=== PATIENT | female | born 1980 | race Caucasian/White ===

== ENCOUNTER 2023-10-19 09:32 | Day surgery (SDC) | payer BC ==
[~2023-10-19] VITALS: Ht 162.6 cm; Wt 73.4 kg
[2023-10-19] VITALS (9 sets, daily range): BP systolic 62–123; BP diastolic 60–76; PULSE 55–64; TEMP 98.2–98.6
[~2023-10-19 09:32] MED LIST: LR 1,000 ML IV SCH
[2023-10-19] MEDS ORDERED: LEXAPRO 5MG5 MG PO (11:14)
[2023-10-19] MEDS ORDERED: CALCIUM 600MG+D1 TAB PO (11:15)
[2023-10-19] MEDS ORDERED: MAGNESIUM200 MG PO (11:15)
[2023-10-19] MEDS ORDERED: PERCOCET 325 MG1 TA2 PO (11:16)
[2023-10-19] MEDS ORDERED: HUMALOG100 U/ML SQ (11:16)
[2023-10-19] MEDS ORDERED: Lidocaine 2% (20 MG/ML) 20 ML UROJET UR ONE (12:00)
[2023-10-19] MEDS ORDERED: Topical Skin Adhesive 1 EACH (1 ML) TOP ONE (12:00)
[2023-10-19] MEDS ORDERED: Scopolamine 1 MG Delivered 3-Day PATCH TD SCH ×2 (12:00→12:15)
[2023-10-19] MEDS ORDERED: dexAMETHasone 10 MG/ML VIAL ONE (12:03)
[2023-10-19] MEDS ORDERED: Rocuronium 50 MG/5 ML Multi-Dose VIAL ONE (12:03)
[2023-10-19] MEDS ORDERED: NS 10 ML IV ONE (12:03)
[2023-10-19] MEDS ORDERED: Ondansetron 4 MG/2 ML VIAL ONE (12:03)
[2023-10-19] MEDS ORDERED: Ketorolac 30 MG/ML VIAL ONE (12:03)
[2023-10-19] MEDS ORDERED: fentaNYL 50 MCG/ML 5 ML VIAL ONE ×2 (12:04)
[2023-10-19] MEDS ORDERED: Glycopyrrolate 0.2 MG/ML 1 ML VIAL ONE (12:43)
[2023-10-19] MEDS ORDERED: fentaNYL 50 MCG/ML 1 ML SYRINGE/VIAL [PACU/SDC ONLY] IV PRN (13:15)
[2023-10-19] MEDS ORDERED: HYDROmorphone 1 MG/1 ML SYRINGE [PACU/SDC ONLY] IV PRN (13:15)
[2023-10-19] MEDS ORDERED: Tranexamic Acid 1,000 MG/10 ML VIAL ONE (13:44)
[2023-10-19] MEDS ORDERED: fentaNYL 50 MCG/ML 2 ML VIAL ONE (13:51)
[2023-10-19] MEDS ORDERED: LR 1,000 ML IV ONE (13:58)
[2023-10-19] MEDS ORDERED: Acetaminophen 500 MG TAB PO PRN (14:30)
[2023-10-19] MEDS ORDERED: LR 1,000 ML IV SCH (14:30)
[2023-10-19] MEDS ORDERED: oxyCODONE 5 MG TAB PO PRN (14:30)
[2023-10-19] MEDS ORDERED: Ondansetron 4 MG/2 ML VIAL IV PRN (14:30)
[2023-10-19] MEDS ORDERED: Naloxone 0.4 MG/ML VIAL IV PRN (14:30)
--- NOTE | 2023-10-19 17:22 | NUR ---
THIS RN CALLS RT TO INFORM THEM OF POSTOP PT STATUS ON UNIT AND NEED FOR INCENTIVE SPIROMETER.
[2023-10-19] MEDS ORDERED: Ibuprofen 800 MG TAB PO SCH (20:21)
[2023-10-19] MEDS ORDERED: Docusate Sodium 100 MG CAP PO SCH (21:00)
[2023-10-20 02:05] VITALS: BP 118/66; PULSE 58; TEMP 98.4
[2023-10-20 07:10] VITALS: BP 130/59; PULSE 56; TEMP 98
--- NOTE | 2023-10-20 09:45 | NUR ---
Initial visit: Patient thanked Joint Sealer for looking in on her and found that she is doing well and will be discharged soon. Patient had a family member with her and both were happy that Krys had a good experience at [facility].
== END 2023-10-20 09:00 | disposition home or self-care (01) ==
LOC: SDCO 09:32 → OB 15:15 → SDCO 10-20 09:00
DX: R10.2 Pelvic and perineal pain (principal); N83.8 Other noninflammatory disorders of ovary, fallopian tube and broad ligament; N83.12 Corpus luteum cyst of left ovary; N70.11 Chronic salpingitis; N80.30 Endometriosis of pelvic peritoneum, unspecified; N73.6 Female pelvic peritoneal adhesions (postinfective); E10.9 Type 1 diabetes mellitus without complications; Z79.4 Long term (current) use of insulin; Z96.41 Presence of insulin pump (external) (internal)
CPT/HCPCS: OP; A9284; J0690; J1100; J1885; J2405; J2704; J3010; J7120